=== PATIENT | female | born 1970 | race Caucasian/White ===

== ENCOUNTER → 2016-12-20 | Outpatient (REF) | payer OTHER | LOC: M LAB REF 09:42 | PROVIDERS: ATTEND Physician Assistant Medical | DX: J10.1 Influenza due to other identified influenza virus with other respiratory manifestations (principal) ==

== ENCOUNTER → 2017-09-01 | Outpatient (CLI) | payer OTHER ==
--- NOTE | 2017-09-01 18:53 | REP ---
Bilateral digital screening mammogram 09/01/2017. Comparison 05/14/2016, 04/28/2015 digital screening mammogram. Clinical history: Screening examination. She has no current complaints, personal history of breast cancer or surgery. She has family history of breast cancer in aunt and grandmother. There are heterogeneously dense fibroglandular elements scattered in the breast parenchyma in a pattern and distribution fairly symmetric. The inner half of the right breast on the CC view only near the chest wall are a couple of areas of architectural distortion and some increased density just close to the chest wall and margin of the film. There is questionably some tissue asymmetry on the MLO view just above midline and in the deep central aspect of the breast. There are no dominant masses, other areas of architectural distortion, suspicious clusters of microcalcification or other secondary signs of malignancy. Impression: 1. BI-RADS/ACR category 0 mammogram, incomplete. Additional imaging and/or prior mammograms for comparison. The patient should return for spot magnified CC and MLO views of the right breast, a medially rotated CC view and a true MLO view of the right breast. Additional images and ultrasound may be performed at the discretion of the reviewing radiologist. There are no other findings. This mammogram was interpreted with the aid of an FDA-approved computer-aided detection system. The patient states she had a clinical breast exam in 02/2017. The patient letter being requested is M0, dense.
== END ==
LOC: M WHC 15:23
PROVIDERS: ATTEND Obstetrics & Gynecology
DX: Z12.39 Encounter for other screening for malignant neoplasm of breast (principal)

== ENCOUNTER → 2017-09-09 | Outpatient (CLI) | payer OTHER ==
--- NOTE | 2017-09-09 15:52 | REP ---
DIAGNOSTIC MAMMOGRAM RIGHT BREAST: Diagnostic mammogram of the right breast performed and correlated with the recent mammogram of 09/01/2017 which showed possible tissue asymmetry in the upper medial right breast. Today's multiple spot compression views show the asymmetric density to compress out to an unchanged appearance compared to other prior exams. There is no persistent asymmetry or architectural distortion. No clustered microcalcifications are seen. IMPRESSION: BI-RADS/ACR category 2 mammogram. Benign finding(s). Routine annual screening mammography (for women over age 40). ACR 2 benign. No persistent abnormalities in the right breast on today's spot compression views. Recommend followup mammogram in 1 year. The patient letter being requested is M1. Signed by Kasi Guido MD 09/10/2017 09:05 A
== END ==
LOC: M RAD 14:57
PROVIDERS: ATTEND Obstetrics & Gynecology
DX: R92.2 Inconclusive mammogram (principal)

== ENCOUNTER → 2017-11-20 | Outpatient (CLI) | payer OTHER | LOC: M WUC 13:17 | DX: M79.671 Pain in right foot (principal) | CPT/HCPCS: 73630 ==

== ENCOUNTER → 2020-11-24 | Outpatient (CLI) | payer OTHER ==
--- NOTE | 2020-11-24 14:28 | REP ---
INDICATION: PAIN COMPARISON: None. TECHNIQUE: Seven views right knee, including standing AP view. FINDINGS: There is no evidence of acute fracture, dislocation, or intrinsic bone disease.Joint spaces appear unremarkable without significant joint space narrowing. There is no radiographic evidence of a significant joint effusion. IMPRESSION: Negative right knee series. <Electronically signed by Kasi Guido > 11/24/20 [id number]
== END ==
LOC: M WUC 11:02
PROVIDERS: ATTEND Nurse Practitioner Adult Health
DX: M25.561 Pain in right knee (principal)

== ENCOUNTER → 2021-09-03 | Outpatient (CLI) | payer OTHER ==
[~2021-09-03] MED LIST: DICL1GEL3 TOP; ESTR3TA PO; L-LY500T6 PO; NOXI1TAB PO; OMEP-218 PO; OSTE5TAB PO; OXYC1TAB23; YUVA10TA3 PO; ZYRTTAB8 PO
[2021-09-03 15:53] LABS: HEMATOCRIT 38.8 % (36.0-47.0); HEMOGLOBIN 12.9 g/dl (12.0-15.5); MEAN CORPUSCULAR HGB CONC 33.2 g/dl (32.0-36.5); MEAN CORPUSCULAR VOLUME 90.2 fl (80.0-96.0); PLATELET COUNT, AUTOMATED 245 10^3/uL (150-450); WHITE BLOOD COUNT 4.4 10^3/uL (4.0-10.0)
[2021-09-03 16:19] LABS: BLOOD UREA NITROGEN 20 MG/DL (7-18); CALCIUM LEVEL 9.2 MG/DL (8.5-10.1); CARBON DIOXIDE LEVEL 28 MEQ/L (21-32); CHLORIDE LEVEL 108 MEQ/L (98-107); CREATININE FOR GFR 0.69 MG/DL (0.55-1.30); GLOMERULAR FILTRATION RATE > 60.0 (>51); GLUCOSE, FASTING 95 MG/DL (70-100); POTASSIUM SERUM 4.1 MEQ/L (3.5-5.1); SODIUM LEVEL 141 MEQ/L (136-145)
--- NOTE | 2021-09-04 05:40 | ECGEPIP ---
[facility] Test Date: 2021-09-03 Pat Name: JA BISWAS Department: Room: - Gender: Female Administrative Resources Associate: ELIJAH : 1970 Requested By: Glynn Everett Order Number: [id number] Reading MD: Curtis Horton Measurements Intervals [place] Rate: 63 P: 39 CT: 166 QRS: 36 QRSD: 88 T: 52 QT: 420 QTc: 429 Interpretive Statements Normal sinus rhythm Low QRS complex voltage in the limb leads Delayed anterior R wave progression Comparison tracing not on file Electronically Signed on 09-04-2021 5:40:27 EST by Curtis Horton
== END ==
LOC: M LAB 15:25
PROVIDERS: ATTEND Podiatrist
DX: Z01.818 Encounter for other preprocedural examination (principal); M20.21 Hallux rigidus, right foot; M79.671 Pain in right foot

== ENCOUNTER → 2021-09-03 | Outpatient (CLI) | payer OTHER | LOC: M LABSMTC 11:12 | PROVIDERS: ATTEND Anesthesiology | DX: Z01.812 Encounter for preprocedural laboratory examination (principal); Z20.822 Contact with and (suspected) exposure to COVID-19 ==

== ENCOUNTER 2021-09-07 10:59 | Day surgery (SDC) | payer OTHER ==
[~2021-09-07] VITALS: Ht 157.5 cm; Wt 68.0 kg
[~2021-09-07 10:59] MED LIST changes: +LIDOCAINE 1% MDV 20ML VIAL SQ PRN; +LR 1,000 ML IV ONE; +OMEP-173 PO; -OMEP-218 PO; +ceFAZolin SOD 2 GM in IV 1 EA IV ONE
[2021-09-07] MEDS ORDERED: MIDAZOLAM INJ 2MG/2ML VIAL (J2250 PER 1MG) As Ordered ONE (11:57)
[2021-09-07] MEDS ORDERED: fentaNYL 100 MCG/2 ML INJECTION As Ordered ONE (11:58)
[2021-09-07] MEDS ORDERED: ONDANSETRON 4MG/2ML VIAL As Ordered ONE (11:58)
[2021-09-07] MEDS ORDERED: GLYCOPYRROLATE INJ 0.2 MG/ML 2 ML VIAL As Ordered ONE (11:58)
[2021-09-07] MEDS ORDERED: LIDOCAINE 2% MDV 20ML VIAL As Ordered ONE (11:58)
[2021-09-07] MEDS ORDERED: LIDOCAINE 2% 100MG/5ML SDV (FOR ANES.) As Ordered ONE ×2 (11:58→11:59)
[2021-09-07] MEDS ORDERED: dexameTHASONE 4 MG/ML 1ML VIAL (J1100 PER 1MG) As Ordered ONE (11:58)
[2021-09-07] MEDS ORDERED: propofoL 200 MG/20 ML VIAL As Ordered ONE (11:58)
[2021-09-07] MEDS ORDERED: GENTAMICIN SULF 80MG/2ML VIAL As Ordered ONE (11:58)
[2021-09-07] MEDS ORDERED: BUPIVACAINE HCL 0.5% 30 ML VIAL As Ordered ONE (11:58)
[2021-09-07] MEDS ORDERED: NEOSPORIN GU IRRIG 20 ML VIAL As Ordered ONE (11:59)
[2021-09-07] MEDS ORDERED: KETAMINE HCL 200 MG/20 ML VIAL As Ordered ONE (12:01)
[2021-09-07] MEDS ORDERED: ACETAMINOPHEN 1000MG 100ML IV BTL (OFIRMEV) (J0131 PER 10MG) As Ordered ONE (13:12)
[2021-09-07 15:00] VITALS: BP 121/76
== END 2021-09-07 15:05 | disposition home or self-care (01) ==
LOC: M SDC 10:59
PROVIDERS: ATTEND Podiatrist
DX: M20.5X1 Other deformities of toe(s) (acquired), right foot (principal); M20.21 Hallux rigidus, right foot; M19.90 Unspecified osteoarthritis, unspecified site; J45.909 Unspecified asthma, uncomplicated; Z88.5 Allergy status to narcotic agent; Z79.899 Other long term (current) drug therapy; Z79.890 Hormone replacement therapy
CPT/HCPCS: 28289; 73630; 88300; J0131; J0690; J1100; J1580; J2250; J2405; J3010

== ENCOUNTER → 2022-11-28 | Outpatient (CLI) | payer OTHER ==
[~2022-11-28] MED LIST changes: -LIDOCAINE 1% MDV 20ML VIAL SQ PRN; -LR 1,000 ML IV ONE; -ceFAZolin SOD 2 GM in IV 1 EA IV ONE
== END ==
LOC: M WHC 13:26
PROVIDERS: ATTEND Internal Medicine
DX: E04.1 Nontoxic single thyroid nodule (principal)

== ENCOUNTER → 2025-02-07 | Outpatient (CLI) | payer OTHER ==
[~2025-02-07] MED LIST changes: +DICL100G10 TOP; -DICL1GEL3 TOP
== END ==
LOC: M WHC 10:07
PROVIDERS: ATTEND Nurse Practitioner Family
DX: E04.2 Nontoxic multinodular goiter (principal)

== ENCOUNTER → 2025-05-02 | Outpatient (CLI) | payer OTHER ==
[~2025-05-02] MED LIST changes: +METHACHOLINE KIT (6 VIAL.NEB PREMIX) INH ONE
== END ==
LOC: M CARPUL 13:57
PROVIDERS: ATTEND Internal Medicine
DX: J45.20 Mild intermittent asthma, uncomplicated (principal)
CPT/HCPCS: 94070; 95070; J7674

== ENCOUNTER 2025-06-02 20:18 | Emergency (ER) | payer OTHER ==
[~2025-06-02] VITALS: Ht 157.5 cm; Wt 74.5 kg
[~2025-06-02 20:18] MED LIST changes: -L-LY500T6 PO; -METHACHOLINE KIT (6 VIAL.NEB PREMIX) INH ONE; +RA L500T PO
[2025-06-02 20:20] VITALS: BP 144/84; TEMP 97.7; O2SAT 100
== END 2025-06-02 21:13 | disposition left against medical advice (07) ==
LOC: M ED 20:18
DX: Z53.21 Procedure and treatment not carried out due to patient leaving prior to being seen by health care provider (principal)

== ENCOUNTER → 2025-07-19 | Outpatient (CLI) | payer OTHER | LOC: M CARPUL 16:04 | PROVIDERS: ATTEND Physician Assistant | DX: R06.00 Dyspnea, unspecified (principal); R94.31 Abnormal electrocardiogram [ECG] [EKG] ==

== ENCOUNTER → 2025-08-04 | Outpatient (CLI) | payer OTHER | LOC: M PLAIMG 14:52 | PROVIDERS: ATTEND Physician Assistant | DX: R94.31 Abnormal electrocardiogram [ECG] [EKG] (principal); R01.1 Cardiac murmur, unspecified; I08.3 Combined rheumatic disorders of mitral, aortic and tricuspid valves ==